=== PATIENT | female | born 1980 | race Caucasian/White ===

== ENCOUNTER → 2017-08-11 | Outpatient (CLI) | payer OTHER ==
[2017-08-11 12:55] LABS: ADD MAN DIFF? NO
[2017-08-11 13:05] LABS: BASO # 0.1 x10^3/uL (0.0-0.2); BASO % 1 % (0-3); EOS # 0.4 x10^3/uL (0.0-0.7); EOS % 4 % (0-3); HEMATOCRIT 40.9 % (36.0-47.0); HEMOGLOBIN 13.6 g/dL (12.0-15.5); LYMPH # 4.6 x10^3/uL (1.0-4.8); LYMPH % 36 % (24-48); MEAN CORPUSCULAR HEMOGLOBIN 29 pg (25-35); MEAN CORPUSCULAR HGB CONC 33 g/dL (31-37); MEAN CORPUSCULAR VOLUME 88 fL (79-100); MONO # 0.9 x10^3/uL (0.0-1.1); MONO % 7 % (0-9); NEUT # 6.7 x10^3uL (1.8-7.7); NEUT % 52 % (31-73); PLATELET COUNT 240 x10^3/uL (140-400); RED BLOOD COUNT 4.64 x10^6/uL (3.50-5.40); RED CELL DISTRIBUTION WIDTH 13.3 % (11.5-14.5); WHITE BLOOD COUNT 12.8 x10^3/uL (4.0-11.0)
[2017-08-11 13:17] LABS: ALBUMIN 3.6 g/dL (3.4-5.0); ALBUMIN/GLOBULIN RATIO 0.9 (1.0-1.7); ALK PHOS 80 U/L (46-116); ALT (SGPT) 71 U/L (14-59); ANION GAP 8 (6-14); AST (SGOT) 39 U/L (15-37); BLOOD UREA NITROGEN 8 mg/dL (7-20); BUN/CREATININE RATIO 11 (6-20); CALCIUM 8.6 mg/dL (8.5-10.1); CARBON DIOXIDE 29 mmol/L (21-32); CHLORIDE 104 mmol/L (98-107); CHOLESTEROL 177 mg/dL (0-200); CREATININE 0.7 mg/dL (0.6-1.0); GFR 93.6; GLUCOSE 106 mg/dL (70-99); HDLC 41 mg/dL (40-60); LDLC 83 mg/dL (0-100); NON-HDL CHOLESTEROL 136 mg/dL (0-129); POTASSIUM 4.2 mmol/L (3.5-5.1); SODIUM 141 mmol/L (136-145); TOTAL BILIRUBIN 0.1 mg/dL (0.2-1.0); TOTAL PROTEIN 7.5 g/dL (6.4-8.2); TRIGLYCERIDES 266 mg/dL (0-150); VLDLC 53 mg/dL (0-40)
[2017-08-11 13:27] LABS: THYROID STIM HORMONE (TSH) 7.051 uIU/mL (0.358-3.74)
[2017-08-11 13:29] LABS: CHOLESTEROL/HDL RATIO 4.3
== END | disposition home or self-care (01) ==
LOC: LAB 12:38
DX: Z00.00 Encounter for general adult medical examination without abnormal findings (principal); R79.89 Other specified abnormal findings of blood chemistry; Z68.33 Body mass index [BMI] 33.0-33.9, adult
CPT/HCPCS: 36415; 80053; 80061; 84443; 85025

== ENCOUNTER → 2017-08-30 | Outpatient (CLI) | payer OTHER ==
[2017-08-30 11:08] LABS: ADD MAN DIFF? NO
[2017-08-30 11:18] LABS: BASO # 0.1 x10^3/uL (0.0-0.2); BASO % 1 % (0-3); EOS # 0.3 x10^3/uL (0.0-0.7); EOS % 3 % (0-3); HEMATOCRIT 39.7 % (36.0-47.0); HEMOGLOBIN 13.3 g/dL (12.0-15.5); LYMPH # 4.2 x10^3/uL (1.0-4.8); LYMPH % 35 % (24-48); MEAN CORPUSCULAR HEMOGLOBIN 30 pg (25-35); MEAN CORPUSCULAR HGB CONC 34 g/dL (31-37); MEAN CORPUSCULAR VOLUME 89 fL (79-100); MONO # 0.8 x10^3/uL (0.0-1.1); MONO % 7 % (0-9); NEUT # 6.4 x10^3uL (1.8-7.7); NEUT % 54 % (31-73); PLATELET COUNT 260 x10^3/uL (140-400); RED BLOOD COUNT 4.47 x10^6/uL (3.50-5.40); RED CELL DISTRIBUTION WIDTH 13.3 % (11.5-14.5); WHITE BLOOD COUNT 11.8 x10^3/uL (4.0-11.0)
[2017-08-31 16:17] LABS: HCV ANTIBODY <0.1 s/co ratio (0.0-0.9); HEP A IGM ABDY Negative (Negative); HEP B SURFACE AG Negative (Negative)
== END | disposition home or self-care (01) ==
LOC: LAB 10:53
DX: D72.829 Elevated white blood cell count, unspecified (principal); R79.89 Other specified abnormal findings of blood chemistry
CPT/HCPCS: 36415; 80074; 85025

== ENCOUNTER 2019-04-17 11:54 | Emergency (ER) | payer OTHER ==
[~2019-04-17] VITALS: Ht 142.2 cm; Wt 67.1 kg
--- NOTE | 2019-04-17 13:23 | RAD ---
EXAM: CHEST ONE VIEW. HISTORY: Hypertension. COMPARISON: None. FINDINGS: A frontal view of the chest is obtained. There are no confluent infiltrates. There is no pneumothorax or pleural effusion. The heart is not enlarged. IMPRESSION: 1. No confluent infiltrates. Electronically signed by: Theresa Le MD (04/17/2019 1:20 PM) [facility]
--- NOTE | 2019-04-17 13:49 | EKG ---
[facility] [address] [place] [address] Test Date: 2019-04-17 Test Time: 13:30:11 Pat Name: GUILLERMO ARITA Department: Room: Gender: F [employer]: : 1980 Requested By: DEBI FLORES Order Number: [id number] Reading MD: Measurements Intervals [place] Rate: 91 P: 39 VT: 162 QRS: -16 QRSD: 68 T: 2 QT: 342 QTc: 422 Interpretive Statements SINUS RHYTHM LEFTWARD AXIS QRS(T) CONTOUR ABNORMALITY CONSISTENT WITH INFERIOR INFARCT AGE UNDETERMINED ABNORMAL ECG RI6.01 No previous ECG available for comparison
[2019-04-17] MEDS: MORPHINE SULFATE 4 MG/ML VIAL. IV/SQ PRN (13:52)
[2019-04-17 14:27] LABS: BASO # 0.1 x10^3/uL (0.0-0.2); BASO % 1 % (0-3); EOS # 0.3 x10^3/uL (0.0-0.7); EOS % 2 % (0-3); HEMATOCRIT 39.8 % (36.0-47.0); HEMOGLOBIN 13.2 g/dL (12.0-15.5); LYMPH # 4.8 x10^3/uL (1.0-4.8); LYMPH % 37 % (24-48); MEAN CORPUSCULAR HEMOGLOBIN 30 pg (25-35); MEAN CORPUSCULAR HGB CONC 33 g/dL (31-37); MEAN CORPUSCULAR VOLUME 90 fL (79-100); MONO % 7 % (0-9); NEUT # 6.9 x10^3/uL (1.8-7.7); NEUT % 53 % (31-73); PLATELET COUNT 253 x10^3/uL (140-400); RED BLOOD COUNT 4.44 x10^6/uL (3.50-5.40); RED CELL DISTRIBUTION WIDTH 13.8 % (11.5-14.5); WHITE BLOOD COUNT 13.1 x10^3/uL (4.0-11.0)
[2019-04-17 14:45] LABS: BARBITURATES NEG (NEG); BENZODIAZEPINES NEG (NEG); CANNABINOIDS NEG (NEG); COCAINE NEG (NEG); METHADONE NEG (NEG); OPIATES NEG (NEG); PHENCYCLIDINE NEG (NEG)
[2019-04-17 14:47] LABS: AMPHETAMINE/METHAMPHETAMINE NEG (NEG)
[2019-04-17 14:51] LABS: CALCIUM 8.7 mg/dL (8.5-10.1); CREATININE 0.7 mg/dL (0.6-1.0); GFR 93.2; POTASSIUM 3.9 mmol/L (3.5-5.1)
[2019-04-17 14:58] LABS: ALBUMIN 3.5 g/dL (3.4-5.0); ALBUMIN/GLOBULIN RATIO 0.9 (1.0-1.7); MAGNESIUM 1.6 mg/dL (1.8-2.4); TOTAL BILIRUBIN 0.3 mg/dL (0.2-1.0); TOTAL PROTEIN 7.4 g/dL (6.4-8.2)
[2019-04-17 16:22] LABS: BILIRUBIN,URINE NEGATIVE (NEG); CLARITY,URINE CLEAR; COLOR,URINE YELLOW; NITRITE,URINE NEGATIVE (NEG); PH,URINE 5.5; PROTEIN,URINE NEGATIVE (NEG-TRACE); UROBILINOGEN,URINE 0.2 mg/dL (0.2 mg/dL)
[2019-04-17 16:39] LABS: AMORPHOUS SEDIMENT,UR PRESENT /HPF; BACTERIA,URINE 0 /HPF (0-FEW); SQUAMOUS EPITHELIAL CELL,UR OCC /LPF; WBC,URINE OCC /HPF (0-4)
[2019-04-17 17:00] VITALS: BP 146/100
--- NOTE | 2019-04-17 17:36 | PHYS DOC ---
Past Medical History Past Medical History: No Pertinent History Past Surgical History: , Tonsillectomy, Tubal ligation Alcohol Use: None Drug Use: None Adult General Chief Complaint Chief Complaint: HYPERTENSION HPI HPI Patient is a 38 year old female with no significant medical history who presents to the ED today to be evaluated for high blood pressure. Patient works as a registered nurse cardiac in the hospital, she states she was on one of the floors upstairs when she felt dizzy and they took her blood pressure which was 172/121 and she was advised to come to the ED. Patient denies any chest pain, shortness of breat h, headache. Review of Systems Review of Systems Constitutional: Denies fever or chills [] Eyes: Denies change in visual acuity, redness, or eye pain [] HENT: Denies nasal congestion or sore throat [] Respiratory: Denies cough or shortness of breath [] Cardiovascular: Reports high blood pressure GI: Denies abdominal pain, nausea, vomiting, bloody stools or diarrhea [] : Denies dysuria or hematuria [] Musculoskeletal: Denies back pain or joint pain [] Integument: Denies rash or skin lesions [] Neurologic: Reports dizziness, denies headache focal weakness or sensory changes [] All other systems were reviewed and found to be within normal limits, except as documented in this note. Current Medications Current Medications Current Medications Medications (Trade) Dose Ordered Sig/[place] Start Time Stop Time Status Last Admin Dose Admin Morphine Sulfate (Morphine Sulfate) 4 mg PRN Q15MIN PRN 04/17/19 13:00 04/18/19 12:59 04/17/19 13:52 4 MG Allergies Allergies Allergies Coded Allergies Type Severity Reaction Last Updated Verified No Known Drug Allergies 04/17/19 No Physical Exam Physical Exam Constitutional: Well developed, well nourished, no acute distress, non-toxic appearance. [] HENT: Normocephalic, atraumatic, bilateral external ears normal, oropharynx moist, no oral exudates, nose normal. [] Eyes: PERRLA, EOMI, conjunctiva normal, no discharge. [] Neck: Normal range of motion, no tenderness, supple, no stridor. [] Cardiovascular:Heart rate regular rhythm, no murmur [] Lungs & Thorax: Bilateral breath sounds clear to auscultation [] Abdomen: Bowel sounds normal, soft, no tenderness, no masses, no pulsatile masses. [] Skin: Warm, dry, no erythema, no rash. [] Back: No tenderness, no CVA tenderness. [] Extremities: No tenderness, no cyanosis, no clubbing, ROM intact, no edema. [] Neurologic: Alert and oriented X 3, normal motor function, normal sensory function, no focal deficits noted. Cranial nerves II through XII intact Psychologic: Affect normal, judgement normal, mood normal. [] Current Patient Data Vital Signs Vital Signs Date Time Temp Pulse Resp B/P (MAP) Pulse Ox O2 Delivery O2 Flow Rate FiO2 04/17/19 14:24 78 96 04/17/19 12:43 98.4 16 141/81 (101) Room Air 98.4 Lab Values Laboratory Tests Test 04/17/19 14:00 04/17/19 14:10 Urine Color Yellow Urine Clarity Clear Urine pH 5.5 Urine Specific [place] 1.025 Urine Protein Negative mg/dL (NEG-TRACE) Urine Glucose (UA) Negative mg/dL (NEG) Urine Ketones (Stick) Negative mg/dL (NEG) Urine Blood Small (NEG) Urine Nitrite Negative (NEG) Urine Bilirubin Negative (NEG) Urine Urobilinogen Dipstick 0.2 mg/dL (0.2 mg/dL) Urine Leukocyte Esterase Negative (NEG) Urine RBC 1-2 /HPF (0-2) Urine WBC Occ /HPF (0-4) Urine Squamous Epithelial Cells Occ /LPF Urine Amorphous Sediment Present /HPF Urine Bacteria 0 /HPF (0-FEW) Urine Opiates Screen Neg (NEG) Urine Methadone Screen Neg (NEG) Urine Barbiturates Neg (NEG) Urine Phencyclidine Screen Neg (NEG) Urine Amphetamine/Methamphetamine Neg (NEG) Urine Benzodiazepines Screen Neg (NEG) Urine Cocaine Screen Neg (NEG) Urine Cannabinoids Screen Neg (NEG) Urine Ethyl Alcohol Neg (NEG) White Blood Count 13.1 x10^3/uL (4.0-11.0) H Red Blood Count 4.44 x10^6/uL (3.50-5.40) Hemoglobin 13.2 g/dL (12.0-15.5) Hematocrit 39.8 % (36.0-47.0) Mean Corpuscular Volume 90 fL (79-100) Mean Corpuscular Hemoglobin 30 pg (25-35) Mean Corpuscular Hemoglobin Concent 33 g/dL (31-37) Red Cell Distribution Width 13.8 % (11.5-14.5) Platelet Count 253 x10^3/uL (140-400) Neutrophils (%) (Auto) 53 % (31-73) Lymphocytes (%) (Auto) 37 % (24-48) Monocytes (%) (Auto) 7 % (0-9) Eosinophils (%) (Auto) 2 % (0-3) Basophils (%) (Auto) 1 % (0-3) Neutrophils # (Auto) 6.9 x10^3/uL (1.8-7.7) Lymphocytes # (Auto) 4.8 x10^3/uL (1.0-4.8) Monocytes # (Auto) 1.0 x10^3/uL (0.0-1.1) Eosinophils # (Auto) 0.3 x10^3/uL (0.0-0.7) Basophils # (Auto) 0.1 x10^3/uL (0.0-0.2) Sodium Level 141 mmol/L (136-145) Potassium Level 3.9 mmol/L (3.5-5.1) Chloride Level 103 mmol/L (98-107) Carbon Dioxide Level 28 mmol/L (21-32) Anion Gap 10 (6-14) Blood Urea Nitrogen 8 mg/dL (7-20) Creatinine 0.7 mg/dL (0.6-1.0) Estimated GFR (Cockcroft-Gault) 93.2 BUN/Creatinine Ratio 11 (6-20) Glucose Level 97 mg/dL (70-99) Calcium Level 8.7 mg/dL (8.5-10.1) Magnesium Level 1.6 mg/dL (1.8-2.4) L Total Bilirubin 0.3 mg/dL (0.2-1.0) Aspartate Amino Transferase (AST) 48 U/L (15-37) H Alanine Aminotransferase (ALT) 98 U/L (14-59) H Alkaline Phosphatase 91 U/L (46-116) Creatine Kinase 110 U/L (26-192) Creatine Kinase MB (Mass) 0.7 ng/mL (0.0-3.6) Creatine Kinase MB Relative Index 0.6 % (0-4) Troponin I Quantitative < 0.017 ng/mL (0.000-0.055) QQ-Cxd-F-Type Natriuretic Peptide 95 pg/mL (0-124) Total Protein 7.4 g/dL (6.4-8.2) Albumin 3.5 g/dL (3.4-5.0) Albumin/Globulin Ratio 0.9 (1.0-1.7) L Thyroid Stimulating Hormone (TSH) 7.187 uIU/mL (0.358-3.74) H Laboratory Tests 04/17/19 14:10 Laboratory Tests 04/17/19 14:10 EKG EKG [address] Roth sinus rhythm HR 91 no STEMI[] Radiology/Procedures Radiology/Procedures []PROCEDURE: PORTABLE CHEST 1V EXAM: CHEST ONE VIEW. HISTORY: Hypertension. COMPARISON: None. FINDINGS: A frontal view of the chest is obtained. There are no confluent infiltrates. There is no pneumothorax or pleural effusion. The heart is not enlarged. IMPRESSION: 1. No confluent infiltrates. Electronically signed by: Theresa Le MD (04/17/2019 1:20 PM) [facility] DICTATED and SIGNED BY: GRACE LE MD DATE: 04/17/19 1320 Course & Med Decision Making Course & Med Decision Making Pertinent Labs and Imaging studies reviewed. (See chart for details) This is a 38-year-old female patient presenting to the ED today complaining of high blood pressure. Patient is employed in the hospital, was upstairs cleaning, felt dizzy, blood pressure was taken which was 172/121, has no previous history of hypertension. Patient arrives in the ED no distress. Neurological exam is intact. Blood pressure in the ED 141/81 HR 87. Patient's cardiac workup is negative, kidney function is normal, patient was discharged to home. Instructed to follow-up with her own PCP in the course of this week or next week. Dragon Disclaimer Dragon Disclaimer This electronic medical record was generated, in whole or in part, using a voice recognition dictation system. Departure Departure Impression: Primary Impression: High blood pressure Additional Impression: Dizziness Disposition: HOME, SELF-CARE Condition: STABLE Referrals: RAJAN JEFFERY MD (PCP) Follow up in the course of this week Patient Instructions: Dizziness, [id number], Managing Your High Blood Pressure Additional Instructions: You were evaluated in the emergency room for high blood pressure and dizziness. Your pressure in the emergency room was 141/81. This can be followed up with a primary care doctor in the course of this week, come back to the ED at any point symptoms worsen. Problem Qualifiers Primary Impression: High blood pressure Hypertension type: unspecified Qualified Codes: I10 - Essential (primary) hypertension DEBI FLORES APRN Apr 17, 2019 17:36
== END 2019-04-17 17:56 | disposition home or self-care (01) ==
LOC: ER 11:54
DX: I10 Essential (primary) hypertension (principal); R42 Dizziness and giddiness
CPT/HCPCS: 36415; 71045; 80053; 80307; 81001; 82553; 83735; 83880; 84443; 84484; 85025; 93005; 96374; 99285; J2270

== ENCOUNTER → 2019-06-30 | Outpatient (CLI) | payer OTHER ==
[2019-06-30 08:32] LABS: BASO # 0.1 x10^3/uL (0.0-0.2); BASO % 1 % (0-3); EOS # 0.5 x10^3/uL (0.0-0.7); EOS % 6 % (0-3); HEMATOCRIT 40.6 % (36.0-47.0); HEMOGLOBIN 13.6 g/dL (12.0-15.5); LYMPH # 3.2 x10^3/uL (1.0-4.8); LYMPH % 36 % (24-48); MEAN CORPUSCULAR HEMOGLOBIN 30 pg (25-35); MEAN CORPUSCULAR HGB CONC 34 g/dL (31-37); MEAN CORPUSCULAR VOLUME 89 fL (79-100); MONO # 0.7 x10^3/uL (0.0-1.1); MONO % 8 % (0-9); NEUT # 4.4 x10^3/uL (1.8-7.7); NEUT % 49 % (31-73); PLATELET COUNT 269 x10^3/uL (140-400); RED BLOOD COUNT 4.56 x10^6/uL (3.50-5.40); RED CELL DISTRIBUTION WIDTH 13.1 % (11.5-14.5); WHITE BLOOD COUNT 8.9 x10^3/uL (4.0-11.0)
[2019-06-30 08:50] LABS: ALBUMIN 3.5 g/dL (3.4-5.0); CREATININE 0.7 mg/dL (0.6-1.0); GFR 93.2; POTASSIUM 3.9 mmol/L (3.5-5.1); TOTAL BILIRUBIN 0.4 mg/dL (0.2-1.0); TOTAL PROTEIN 6.9 g/dL (6.4-8.2)
[2019-06-30 08:52] LABS: CHOLESTEROL/HDL RATIO 4.6
[2019-06-30 09:05] LABS: FREE T4 1.09 ng/dL (0.76-1.46); THYROID STIM HORMONE (TSH) 4.192 uIU/mL (0.358-3.74)
== END | disposition home or self-care (01) ==
LOC: LAB 07:39
PROVIDERS: ATTEND Nurse Practitioner Gerontology
DX: Z13.220 Encounter for screening for lipoid disorders (principal); R53.83 Other fatigue; E03.9 Hypothyroidism, unspecified
CPT/HCPCS: 36415; 80053; 80061; 82306; 84439; 84443; 85025

== ENCOUNTER → 2019-09-22 | Outpatient (CLI) | payer OTHER ==
[2019-09-22 09:38] LABS: FREE T4 0.89 ng/dL (0.76-1.46); THYROID STIM HORMONE (TSH) 3.735 uIU/mL (0.358-3.74)
== END | disposition home or self-care (01) ==
LOC: LAB 08:24
PROVIDERS: ATTEND Nurse Practitioner Gerontology
DX: E03.9 Hypothyroidism, unspecified (principal)
CPT/HCPCS: 36415; 84439; 84443

== ENCOUNTER → 2020-01-29 | Outpatient (CLI) | payer OTHER | END | disposition home or self-care (01) | LOC: LAB 08:48 | PROVIDERS: ATTEND Internal Medicine Pulmonary Disease | DX: Z20.828 Contact with and (suspected) exposure to other viral communicable diseases (principal) | CPT/HCPCS: U0003-CS ==

== ENCOUNTER → 2020-03-18 | Outpatient (CLI) | payer OTHER ==
[2020-03-18 07:52] LABS: CALCIUM 9.3 mg/dL (8.5-10.1); CREATININE 0.8 mg/dL (0.6-1.0); GFR 79.4; POTASSIUM 4.2 mmol/L (3.5-5.1)
[2020-03-19 01:08] LABS: HEMOGLOBIN A1C 6.3 % (4.8-5.6)
== END ==
LOC: LAB 07:26
PROVIDERS: ATTEND Family Medicine
DX: R73.09 Other abnormal glucose (principal)
CPT/HCPCS: 36415; 80048; 83036

== ENCOUNTER → 2020-05-27 | Outpatient (CLI) | payer OTHER | LOC: LAB 12:26 | PROVIDERS: ATTEND Internal Medicine Pulmonary Disease | DX: Z20.828 Contact with and (suspected) exposure to other viral communicable diseases (principal) | CPT/HCPCS: U0003 ==

== ENCOUNTER → 2020-10-16 | Outpatient (CLI) | payer OTHER ==
[2020-10-16 08:25] LABS: FREE T4 0.99 ng/dL (0.76-1.46); THYROID STIM HORMONE (TSH) 3.343 uIU/mL (0.358-3.74)
== END ==
LOC: LAB 07:24
PROVIDERS: ATTEND Family Medicine
DX: E03.9 Hypothyroidism, unspecified (principal)
CPT/HCPCS: 36415; 84439; 84443

== ENCOUNTER 2020-11-12 13:16 | Observation (INO) | payer OTHER ==
[~2020-11-12] VITALS: Ht 149.9 cm; Wt 86.3 kg
--- NOTE | 2020-11-12 13:58 | ED.ADGEN ---
Past Medical History Past Medical History: No Pertinent History Past Surgical History: , Tonsillectomy, Tubal ligation Smoking Status: Never Smoker Alcohol Use: None Drug Use: None General Adult EDM: Chief Complaint: DIZZY/LIGHT HEADED HPI: HPI: Patient is a 40-year-old female who arrives ambulatory to the emergency department complaining of the onset of feeling lightheaded as well as e xperiencing left-sided chest pain at roughly noon today. Patient reports she is working with this occurred. Patient states she checked her blood pressure and found to be significantly elevated. The patient reports she had tightness in her chest and felt as if she might pass out during this time. Patient states the pain radiated from her chest into her left upper extremity as well. Patient does have a history of hypertension however she is not been taking her medications for quite some time. Upon arrival to the emergency department the patient's blood pressure continues to remain elevated. She denies any history of illness. She further states that she is not had any focal neurological change otherwise. She is awake, alert and nontoxic-appearing. Review of Systems: Review of Systems: Constitutional: Denies fever or chills. [] Eyes: Denies change in visual acuity. [] HENT: Denies nasal congestion or sore throat. [] Respiratory: Denies cough or shortness of breath. [] Cardiovascular: Reports chest pain. Denies edema. [] GI: Denies abdominal pain, nausea, vomiting, bloody stools or diarrhea. [] : Denies dysuria. [] Musculoskeletal: Reports left upper extremity pain. Denies back pain or joint pain. [] Integument: Denies rash. [] Neurologic: Reports feeling lightheaded/dizzy. Denies headache, focal weakness or sensory changes. [] Endocrine: Denies polyuria or polydipsia. [] Lymphatic: Denies swollen glands. [] Psychiatric: Denies depression or anxiety. [] Current Medications: Current Medications Medications (Trade) Dose Ordered Sig/[place] Start Time Stop Time Status Last Admin Dose Admin Aspirin (Aspirin Chewable) 324 mg 1X ONCE 11/12/20 14:00 11/12/20 14:07 DC 11/12/20 14:26 324 MG Hydralazine HCl (Apresoline Inj) 10 mg 1X ONCE 11/12/20 15:00 11/12/20 15:01 DC 11/12/20 15:09 10 MG Allergies: Allergies: Allergies Coded Allergies Type Severity Reaction Last Updated Verified No Known Drug Allergies 04/17/19 No Physical Exam: PE: Constitutional: Well developed, well nourished, no acute distress, non-toxic appearance. [] HENT: Normocephalic, atraumatic, bilateral external ears normal, oropharynx moist, no oral exudates, nose normal. [] Eyes: PERRLA, EOMI, conjunctiva normal, no discharge. [] Neck: Normal range of motion, no tenderness, supple, no stridor. [] Cardiovascular:Heart rate regular rhythm, no murmur [] Lungs & Thorax: Bilateral breath sounds clear to auscultation [] Abdomen: Bowel sounds normal, soft, no tenderness, no masses, no pulsatile masses. [] Skin: Warm, dry, no erythema, no rash. [] Back: No tenderness, no CVA tenderness. [] Extremities: No tenderness, no cyanosis, no clubbing, ROM intact, no edema. [] Neurologic: Alert and oriented X 3, normal motor function, normal sensory function, no focal deficits noted. [] Psychologic: Affect normal, judgement normal, mood normal. [] Current Patient Data: Labs: Laboratory Tests Test 11/12/20 14:10 White Blood Count 15.6 x10^3/uL (4.0-11.0) H Red Blood Count 5.18 x10^6/uL (3.50-5.40) Hemoglobin 15.8 g/dL (12.0-15.5) H Hematocrit 45.8 % (36.0-47.0) Mean Corpuscular Volume 88 fL (79-100) Mean Corpuscular Hemoglobin 31 pg (25-35) Mean Corpuscular Hemoglobin Concent 35 g/dL (31-37) Red Cell Distribution Width 13.6 % (11.5-14.5) Platelet Count 284 x10^3/uL (140-400) Neutrophils (%) (Auto) 67 % (31-73) Lymphocytes (%) (Auto) 24 % (24-48) Monocytes (%) (Auto) 8 % (0-9) Eosinophils (%) (Auto) 1 % (0-3) Basophils (%) (Auto) 1 % (0-3) Neutrophils # (Auto) 10.4 x10^3/uL (1.8-7.7) H Lymphocytes # (Auto) 3.7 x10^3/uL (1.0-4.8) Monocytes # (Auto) 1.2 x10^3/uL (0.0-1.1) H Eosinophils # (Auto) 0.1 x10^3/uL (0.0-0.7) Basophils # (Auto) 0.2 x10^3/uL (0.0-0.2) Sodium Level 144 mmol/L (136-145) Potassium Level 3.8 mmol/L (3.5-5.1) Chloride Level 102 mmol/L (98-107) Carbon Dioxide Level 29 mmol/L (21-32) Anion Gap 13 (6-14) Blood Urea Nitrogen 13 mg/dL (7-20) Creatinine 0.9 mg/dL (0.6-1.0) Estimated GFR (Cockcroft-Gault) 69.0 BUN/Creatinine Ratio 14 (6-20) Glucose Level 138 mg/dL (70-99) H Calcium Level 9.4 mg/dL (8.5-10.1) Total Bilirubin 0.2 mg/dL (0.2-1.0) Aspartate Amino Transferase (AST) 40 U/L (15-37) H Alanine Aminotransferase (ALT) 97 U/L (14-59) H Alkaline Phosphatase 87 U/L (46-116) Troponin I Quantitative < 0.017 ng/mL (0.000-0.055) XQ-Wme-B-Type Natriuretic Peptide 28 pg/mL (0-124) Total Protein 8.3 g/dL (6.4-8.2) H Albumin 4.7 g/dL (3.4-5.0) Albumin/Globulin Ratio 1.3 (1.0-1.7) Lipase 169 U/L (73-393) Laboratory Tests 11/12/20 14:10 Laboratory Tests 11/12/20 14:10 Vital Signs: Vital Signs Date Time Temp Pulse Resp B/P (MAP) Pulse Ox O2 Delivery O2 Flow Rate FiO2 11/12/20 15:09 87 197/119 11/12/20 13:40 98.6 20 97 Room Air 98.6 EKG: EKG: EKG was obtained at 1340 hrs. revealed a normal sinus rhythm with a ventricular rate of 80 bpm. There is right axis deviation. There are no acute ST/T wave changes to denote ischemia. [] Heart Score: C/O Chest Pain: Yes HEART Score for Chest Pain: HEART Score for Chest Pain Response (Comments) Value History Slighlty/Non-Suspicious 0 ECG Normal 0 Age < 45 0 Risk Factors 1 or 2 Risk Factors 1 Troponin < Normal Limit 0 Total 1 Risk Factors: Risk Factors: DM, Current or recent (<one month) smoker, HTN, HLP, family history of CAD, obesity. Risk Scores: Score 0 - 3: 2.5% MACE over next 6 weeks - Discharge Home Score 4 - 6: 20.3% MACE over next 6 weeks - Admit for Clinical Observation Score 7 - 10: 72.7% MACE over next 6 weeks - Early Invasive Strategies Radiology/Procedures: Radiology/Procedures: [] Impression: [facility] [address] [place], [place] [id number] IMAGING REPORT Signed PATIENT: GUILLERMO ARITA ACCOUNT: [id number] : 1980 LOCATION: ER AGE: 40 SEX: F EXAM STATUS: REG ER ORD. PHYSICIAN: JAXSON HAILE DO REASON: Chest Pain today PROCEDURE: PORTABLE CHEST 1V EXAM: CHEST 1 VIEW History: Chest pain COMPARISON: 04/17/2019. TECHNIQUE: Single portable radiograph of the chest FINDINGS: The cardiac silhouette is unremarkable. The lungs are clear bilaterally. The costophrenic sulci are clear and well demarcated. IMPRESSION: No radiographic evidence of an acute cardiopulmonary process. Electronically signed by: Eddie Graves MD (11/12/2020 2:05 PM) [id number] DICTATED and SIGNED BY: EDDIE GRAVES MD DATE: 11/12/20 [id number] 0 Course & Med Decision Making: Course & Med Decision Making Pertinent Labs and Imaging studies reviewed. (See chart for details) The patient remains awake, alert and in no acute distress. Patient's labs do not currently elicit the picture of a cardiac injury. Nonetheless the patient has continued high blood pressure here in the emergency department. 1 dose of IV hydralazine was provided to the patient and I have informed the patient I do believe she needs to remain in the hospital for further evaluation and treatment. The patient understands and has agreed to stay. She has been admitted to the hospital service for this purpose. She is nontoxic-appearing and stable for transport to the floor. [] Dragon Disclaimer: Dragon Disclaimer: This electronic medical record was generated, in whole or in part, using a voice recognition dictation system. Departure Departure Impression: Primary Impression: Chest pain Additional Impression: Uncontrolled hypertension Disposition: ADMITTED INPATIENT Admitting Physician: SHIMA Condition: STABLE Referrals: Gilbert CHA MD (PCP) Problem Qualifiers JAXSON HAILE DO Nov 12, 2020 13:58
[2020-11-12] MEDS ORDERED: ASPIRIN CHEWABLE 81 MG TABLET. PO ONE (14:00)
--- NOTE | 2020-11-12 14:07 | RAD ---
EXAM: CHEST 1 VIEW History: Chest pain COMPARISON: 04/17/2019. TECHNIQUE: Single portable radiograph of the chest FINDINGS: The cardiac silhouette is unremarkable. The lungs are clear bilaterally. The costophrenic sulci are clear and well demarcated. IMPRESSION: No radiographic evidence of an acute cardiopulmonary process. Electronically signed by: Eddie Graves MD (11/12/2020 2:05 PM) [id number]
[2020-11-12 14:25] LABS: BASO # 0.2 x10^3/uL (0.0-0.2); BASO % 1 % (0-3); EOS # 0.1 x10^3/uL (0.0-0.7); EOS % 1 % (0-3); HEMATOCRIT 45.8 % (36.0-47.0); HEMOGLOBIN 15.8 g/dL (12.0-15.5); LYMPH # 3.7 x10^3/uL (1.0-4.8); LYMPH % 24 % (24-48); MEAN CORPUSCULAR HEMOGLOBIN 31 pg (25-35); MEAN CORPUSCULAR HGB CONC 35 g/dL (31-37); MEAN CORPUSCULAR VOLUME 88 fL (79-100); MONO # 1.2 x10^3/uL (0.0-1.1); MONO % 8 % (0-9); NEUT # 10.4 x10^3/uL (1.8-7.7); NEUT % 67 % (31-73); PLATELET COUNT 284 x10^3/uL (140-400); RED BLOOD COUNT 5.18 x10^6/uL (3.50-5.40); RED CELL DISTRIBUTION WIDTH 13.6 % (11.5-14.5); WHITE BLOOD COUNT 15.6 x10^3/uL (4.0-11.0)
[2020-11-12 14:36] LABS: CALCIUM 9.4 mg/dL (8.5-10.1); CREATININE 0.9 mg/dL (0.6-1.0); POTASSIUM 3.8 mmol/L (3.5-5.1)
[2020-11-12 14:46] LABS: ALBUMIN 4.7 g/dL (3.4-5.0); ALBUMIN/GLOBULIN RATIO 1.3 (1.0-1.7); TOTAL BILIRUBIN 0.2 mg/dL (0.2-1.0); TOTAL PROTEIN 8.3 g/dL (6.4-8.2)
[2020-11-12] MEDS ORDERED: hydrALAZINE 20 MG/ML VIAL. IVP ONE (15:00)
--- NOTE | 2020-11-12 15:39 | PDOC1 ---
History and Physical Date of Admission Date of Admission DATE: 11/12/20 TIME: 15:38 Identification/Chief Complaint Chief Complaint CHEST PAIN AT REST, NECK PAIN WITH RIGHT RADICULAR Symptoms after lifting at work , FATHER HAD CAD AT AGE 53 History of Present Illness History of Present Illness 40-year-old female, works here who arrives ambulatory to the emergency department complaining of the onset of feeling lightheaded as well as experiencing left-sided chest pain at roughly noon today. she was working with this occurred. Patient states she checked her blood pressure and found to be significantly elevated. The patient reports she had tightness in her chest and felt as if she might pass out the pain radiated from her chest into her left upper extremity as well. Patient does have a history of hypertension however she is not been taking her medications for quite some time. Upon arrival to the emergency department the patient's blood pressure continues to remain elevated. She denies increased usual stress in her life, but sustained a right arm injury at work recently with right cervical radiculopathy, and is taking a medrol dose MEET she is worried becaused her father had a CABG AT AGE 53 PLAN cvc bed / cardiology consult trend troponin i // consider out patient stress testing dvt prophylaxis Past Medical History Past Medical History Past Medical History Past Medical History: No Pertinent History Past Surgical History: , Tonsillectomy, Tubal ligation Smoking Status: Never Smoker Alcohol Use: None Drug Use: None Cardiovascular: HTN GI: No pertinent hx Heme/Onc: No pertinent hx Psych: No pertinent hx ENT: No pertinent hx Renal/: No pertinent hx Family History Family History: Heart Disease, High Cholestrol, Hypertension Family History: Parent Social History Smoke: No ALCOHOL: none Drugs: None Current Problem List Problem List Problems Medical Problems: (1) Chest pain Status: Acute (2) Uncontrolled hypertension Status: Acute Current Medications Current Medications Current Medications Aspirin (Aspirin Chewable) 324 mg 1X ONCE PO Last administered on 11/12/20at 14:26; Start 11/12/20 at 14:00; Stop 11/12/20 at 14:07; Status DC Hydralazine HCl (Apresoline Inj) 10 mg 1X ONCE IVP Last administered on 11/12/20at 15:09; Start 11/12/20 at 15:00; Stop 11/12/20 at 15:01; Status DC Allergies Allergies: Coded Allergies: No Known Drug Allergies (Unverified , 04/17/19) ROS Review of System Constitutional: Denies fever or chills. [] Eyes: Denies change in visual acuity. [] HENT: Denies nasal congestion or sore throat. [] Respiratory: Denies cough or shortness of breath. [] Cardiovascular: Reports chest pain. Denies edema. [] GI: Denies abdominal pain, nausea, vomiting, bloody stools or diarrhea. [] : Denies dysuria. [] Musculoskeletal: Reports left upper extremity pain. Denies back pain or joint pain. [] Integument: Denies rash. [] Neurologic: Reports feeling lightheaded/dizzy. Denies headache, focal weakness or sensory changes. [] Endocrine: Denies polyuria or polydipsia. [] Lymphatic: Denies swollen glands. [] Psychiatric: Denies depression or anxiety. [] General: No: Chills, Night Sweats, Fatigue, Malaise, Appetite, Other PSYCHOLOGICAL ROS: YES: Anxiety; No: Behavioral Disorder, Concentration difficultie, Decreased libido, Depression, Disorientation, Hallucinations, Hostility, Irritablity, Memory difficulties, Mood Swings, Obsessive thoughts, Physical abuse, Sexual abuse, Sleep disturbances, Suicidal ideation, Other Eyes: No Blurry vision, No Decreased vision, No Double vision, No Dry eyes, No Excessive tearing, No Eye Pain, No Itchy Eyes, No Loss of vision, No Photophobia, No Scotomata, No Uses contacts, No Uses glasses, No Other HEENT: No: Heacaches, Visual Changes, Hearing change, Nasal congestion, Nasal discharge, Oral lesions, Sinus pain, Sore Throat, Epistaxis, Sneezing, Snoring, Tinnitus, Vertigo, Vocal changes, Other ALLERGY AND IMMUNOLOGY: No: Hives, Insect Bite Sensitivity, Itchy/Watery Eyes, Nasal Congestion, Post Nasal Drip, Seasonal Allergies, Other Hematological and Lymphatic: No: Bleeding Problems, Blood Clots, Blood Trans fusions, Brusing, Night Sweats, Pallor, Swollen Lymph Nodes, Other ENDOCRINE: No: Breast Changes, Galactorrhea, Hair Pattern Changes, Hot Flashes, Malaise/lethargy, Mood Swings, Palpitations, Polydipsia/polyuria, Skin Changes, Temperature Intolerance, Unexpected Weight Changes, Other Respiratory: No: Cough, Hemoptysis, Orthopnea, Pleuritic Pain, Shortness of breath, SOB with excertion, Sputum Changes, Stridor, Tachypnea, Wheezing, Other Cardiovascular: yes Chest Pain; No Palpitations, No Orthopnea, No Paroxysmal Noc. Dyspnea, No Edema, No Lt Headedness, No Other Gastrointestinal: No Nausea, No Vomiting, No Abdominal Pain, No Diarrhea, No Constipation, No Melena, No Hematochezia, No Other Genitourinary: No Dysuria, No Frequency, No Incontinence, No Hematuria, No Retention, No Discharge, No Urgency, No Pain, No Flank Pain, No Other, No , No , No , No , No , No , No Musculoskeletal: Yes Joint Stiffness, Yes Muscle Pain, Yes Pain In: (r arm ) Neurological: No Behavorial Changes, No Bowel/Bladder ControlChng, No Confusion, No Dizziness, No Gait Disturbance, No Headaches, No Impaired Coord/balance, No Memory Loss, No Numbness/Tingling, No Seizures, No Speech Problems, No Tremors, No Visual Changes, No Weakness, No Other Skin: No Dry Skin, No Eczema, No Hair Changes, No Lumps, No Mole Changes, No Mottling, No Nail Changes, No Pruritus, No Rash, No Skin Lesion Changes, No Other, No Acne Physical Exam Physical Exam Constitutional: Well developed, well nourished, no acute distress, non-toxic appearance. [] anxious HENT: Normocephalic, atraumatic, bilateral external ears normal, oropharynx moist, no oral exudates, nose normal. [] Eyes: PERRLA, EOMI, conjunctiva normal, no discharge. [] Neck: Normal range of motion, no tenderness, supple, no stridor. [] Cardiovascular:Heart rate regular rhythm, no murmur [] Lungs & Thorax: Bilateral breath sounds clear to auscultation [] Abdomen: Bowel sounds normal, soft, no tenderness, no masses, no pulsatile masses. [] Skin: Warm, dry, no erythema, no rash. [] Back: No tenderness, no CVA tenderness. [] Extremities: No tenderness, no cyanosis, no clubbing, ROM intact, no edema. [] Neurologic: Alert and oriented X 3, normal motor function, normal sensory function, no focal deficits noted. [] Psychologic: Affect normal, judgment normal, mood normal. [] General: Alert, Oriented X3, Cooperative HEENT: Atraumatic, PERRLA, EOMI, Mucous membr. moist/pink Lungs: Clear to auscultation, Normal air movement Heart: RRR, no thrills, no rubs, no gallops, no murmurs, no jug vein distention Cardiovascular: S1, S2 Breasts: Not examined Abdomen: Normal bowel sounds, Soft, No tenderness, No hepatosplenomegaly, No masses Rectal Exam: not examined PELVIC: Examination not indicated Extremities: No cyanosis Neuro: Normal speech, Strength at 5/5 X4 ext, Sensation intact, Cranial nerves 3-12 NL Psych/Mental Status: Mental status NL, Mood NL Vitals Vitals Vital Signs Date Time Temp Pulse Resp B/P (MAP) Pulse Ox O2 Delivery O2 Flow Rate FiO2 11/12/20 15:09 87 197/119 11/12/20 13:40 98.6 20 97 Room Air 98.6 Labs Labs Laboratory Tests Test 11/12/20 14:10 White Blood Count 15.6 x10^3/uL (4.0-11.0) Red Blood Count 5.18 x10^6/uL (3.50-5.40) Hemoglobin 15.8 g/dL (12.0-15.5) Hematocrit 45.8 % (36.0-47.0) Mean Corpuscular Volume 88 fL (79-100) Mean Corpuscular Hemoglobin 31 pg (25-35) Mean Corpuscular Hemoglobin Concent 35 g/dL (31-37) Red Cell Distribution Width 13.6 % (11.5-14.5) Platelet Count 284 x10^3/uL (140-400) Neutrophils (%) (Auto) 67 % (31-73) Lymphocytes (%) (Auto) 24 % (24-48) Monocytes (%) (Auto) 8 % (0-9) Eosinophils (%) (Auto) 1 % (0-3) Basophils (%) (Auto) 1 % (0-3) Neutrophils # (Auto) 10.4 x10^3/uL (1.8-7.7) Lymphocytes # (Auto) 3.7 x10^3/uL (1.0-4.8) Monocytes # (Auto) 1.2 x10^3/uL (0.0-1.1) Eosinophils # (Auto) 0.1 x10^3/uL (0.0-0.7) Basophils # (Auto) 0.2 x10^3/uL (0.0-0.2) Sodium Level 144 mmol/L (136-145) Potassium Level 3.8 mmol/L (3.5-5.1) Chloride Level 102 mmol/L (98-107) Carbon Dioxide Level 29 mmol/L (21-32) Anion Gap 13 (6-14) Blood Urea Nitrogen 13 mg/dL (7-20) Creatinine 0.9 mg/dL (0.6-1.0) Estimated GFR (Cockcroft-Gault) 69.0 BUN/Creatinine Ratio 14 (6-20) Glucose Level 138 mg/dL (70-99) Calcium Level 9.4 mg/dL (8.5-10.1) Total Bilirubin 0.2 mg/dL (0.2-1.0) Aspartate Amino Transf (AST/SGOT) 40 U/L (15-37) Alanine Aminotransferase (ALT/SGPT) 97 U/L (14-59) Alkaline Phosphatase 87 U/L (46-116) Troponin I Quantitative < 0.017 ng/mL (0.000-0.055) DW-Pkd-J-Type Natriuretic Peptide 28 pg/mL (0-124) Total Protein 8.3 g/dL (6.4-8.2) Albumin 4.7 g/dL (3.4-5.0) Albumin/Globulin Ratio 1.3 (1.0-1.7) Lipase 169 U/L (73-393) Laboratory Tests Test 11/12/20 14:10 White Blood Count 15.6 x10^3/uL (4.0-11.0) Red Blood Count 5.18 x10^6/uL (3.50-5.40) Hemoglobin 15.8 g/dL (12.0-15.5) Hematocrit 45.8 % (36.0-47.0) Mean Corpuscular Volume 88 fL (79-100) Mean Corpuscular Hemoglobin 31 pg (25-35) Mean Corpuscular Hemoglobin Concent 35 g/dL (31-37) Red Cell Distribution Width 13.6 % (11.5-14.5) Platelet Count 284 x10^3/uL (140-400) Neutrophils (%) (Auto) 67 % (31-73) Lymphocytes (%) (Auto) 24 % (24-48) Monocytes (%) (Auto) 8 % (0-9) Eosinophils (%) (Auto) 1 % (0-3) Basophils (%) (Auto) 1 % (0-3) Neutrophils # (Auto) 10.4 x10^3/uL (1.8-7.7) Lymphocytes # (Auto) 3.7 x10^3/uL (1.0-4.8) Monocytes # (Auto) 1.2 x10^3/uL (0.0-1.1) Eosinophils # (Auto) 0.1 x10^3/uL (0.0-0.7) Basophils # (Auto) 0.2 x10^3/uL (0.0-0.2) Sodium Level 144 mmol/L (136-145) Potassium Level 3.8 mmol/L (3.5-5.1) Chloride Level 102 mmol/L (98-107) Carbon Dioxide Level 29 mmol/L (21-32) Anion Gap 13 (6-14) Blood Urea Nitrogen 13 mg/dL (7-20) Creatinine 0.9 mg/dL (0.6-1.0) Estimated GFR (Cockcroft-Gault) 69.0 BUN/Creatinine Ratio 14 (6-20) Glucose Level 138 mg/dL (70-99) Calcium Level 9.4 mg/dL (8.5-10.1) Total Bilirubin 0.2 mg/dL (0.2-1.0) Aspartate Amino Transf (AST/SGOT) 40 U/L (15-37) Alanine Aminotransferase (ALT/SGPT) 97 U/L (14-59) Alkaline Phosphatase 87 U/L (46-116) Troponin I Quantitative < 0.017 ng/mL (0.000-0.055) FT-Egb-N-Type Natriuretic Peptide 28 pg/mL (0-124) Total Protein 8.3 g/dL (6.4-8.2) Albumin 4.7 g/dL (3.4-5.0) Albumin/Globulin Ratio 1.3 (1.0-1.7) Lipase 169 U/L (73-393) VTE Prophylaxis Ordered VTE Prophylaxis Devices: No VTE Pharmacological Prophylaxi: Yes Assessment/Plan Assessment/Plan Impression: Chest pain, First degree relative, ( father had premature CAD AT age 53, CABG morbid obesity cervical radiculopathy on right Uncontrolled hypertension Dizziness Anxiety disorder ADMITTED cvc bed cardiology consult trend troponin i consider out patient stress testing dvt prophylaxis D/W ER Justifications for Admission Other Justification VENESSA KAMINSKI MD Nov 12, 2020 15:38
[2020-11-12] MEDS ORDERED: ONDANSETRON PF 4 MG/2 ML VIAL. IV PRN ×2 (15:45→18:45)
--- NOTE | 2020-11-12 16:33 | EKG ---
[facility] [address] [place] [address] Test Date: 2020-11-12 Test Time: 13:40:45 Pat Name: GUILLERMO ARITA Department: Room: Gender: F Contact Lens Manufacturer: : [id number] Requested By: JAXSON HAILE Order Number: [id number] Reading MD: Measurements Intervals [place] Rate: 88 P: 143 MD: 162 QRS: 204 QRSD: 72 T: 165 QT: 338 QTc: 412 Interpretive Statements SUPRAVENTRICULAR RHYTHM LEFT ATRIAL ABNORMALITY ABNORMAL RIGHT SUPERIOR AXIS DEVIATION CONSIDER RIGHT VENTRICULAR HYPERTROPHY QRS(T) CONTOUR ABNORMALITY CONSIDER HIGH LATERAL INFARCT CONSIDER INFERIOR INFARCT ABNORMAL ECG RI6.02 No previous ECG available for comparison
[2020-11-12] MEDS ORDERED: hydrALAZINE 20 MG/ML VIAL. IVP PRN (17:15)
[2020-11-12] MEDS ORDERED: LEVO75TA67 PO (17:29)
[2020-11-12] MEDS ORDERED: TIZA2CAP PO (17:29)
[2020-11-12] MEDS ORDERED: METH4TAB6 PO (17:29)
[2020-11-12] MEDS ORDERED: METF500T16 PO (17:29)
[2020-11-12 17:35] VITALS: BP 195/112
[2020-11-12] MEDS ORDERED: tiZANidine 4 MG TABLET. PO PRN (18:00)
[2020-11-12] MEDS ORDERED: DEXTROSE 50% 25 GM / 50ML DISP.SYRIN. IV PRN (18:45)
[2020-11-12] MEDS: IV NORMAL SALINE 1000ML BAG 1,000 ML IV SCH (18:45)
[2020-11-12] MEDS ORDERED: cloNIDine HCL 0.1 MG TABLET PO PRN (18:45)
[2020-11-12] MEDS ORDERED: SODIUM PHOSPHATES 19/7GM 133 ML ENEMA. PR PRN (18:45)
[2020-11-12] MEDS ORDERED: ZOLPIDEM 5 MG TABLET. PO PRN (18:45)
[2020-11-12] MEDS ORDERED: ALBUTEROL SULFATE 2.5 MG/3 ML NEBU. NEB PRN (18:45)
[2020-11-12] MEDS ORDERED: LORazepam 0.5 MG TABLET PO PRN (18:45)
[2020-11-12] MEDS ORDERED: ACETAMINOPHEN 325 MG TABLET. PO PRN (18:45)
[2020-11-12] MEDS ORDERED: 0.9 % SODIUM CHLORIDE 10 ML DISP.SYRIN. IV PRN (18:45)
[2020-11-12] MEDS ORDERED: DOCUSATE SODIUM 100 MG CAPSULE. PO PRN (18:45)
[2020-11-12] MEDS ORDERED: MAG HYDROX/ALUMINUM HYD/SIMETH 30 ML ORAL.SUSP PO PRN (18:45)
[2020-11-12] MEDS ORDERED: guaiFENesin ORAL 200 MG/10 ML LIQUID. PO PRN (18:45)
[2020-11-12 19:56] VITALS: BP 156/98
[2020-11-12] MEDS: LISINOPRIL 5 MG TABLET. PO SCH (20:36)
[2020-11-12] MEDS: MEDROL PO SCH (20:37)
[2020-11-12] MEDS ORDERED: ENOXAPARIN 40 MG/0.4 ML SYRINGE. SQ SCH (21:00)
[2020-11-12] MEDS ORDERED: metFORMIN 500 MG TABLET PO SCH (21:00)
[2020-11-12 23:23] VITALS: BP 128/85
[2020-11-13 02:45] VITALS: BP 123/68
[2020-11-13] MEDS ORDERED: LEVOTHYROXINE 75 MCG TABLET PO SCH (06:00)
[2020-11-13] MEDS: IV NORMAL SALINE 1000ML BAG 1,000 ML IV SCH (06:31)
[2020-11-13 07:55] VITALS: BP 134/88
[2020-11-13] MEDS: INSULIN LISPRO 300 UNITS/3 ML VIAL. SQ SCH ×2 (08:00→12:19)
[2020-11-13 08:14] LABS: CHOLESTEROL/HDL RATIO 3.4
[2020-11-13] MEDS: MEDROL PO SCH (08:31)
[2020-11-13] MEDS: LISINOPRIL 5 MG TABLET. PO SCH (08:34)
--- NOTE | 2020-11-13 09:31 | PDOC2 ---
MILY JOHNS BUSINESS CONTINUITY MANAGEMENT DIRECTOR 11/13/20 0931: CARDIAC CONSULT DATE OF CONSULT Date of Consult DATE: 11/13/20 TIME: :21 REASON FOR CONSULT Reason for Consult: Chest pain REFERRING PHYSICIAN Referring Physician: Fullbright SOURCE Source: Chart review, Patient HISTORY OF PRESENT ILLNESS HISTORY OF PRESENT ILLNESS This is a pleasant 40 yo female admitted for complains of chest pain and not feeling good. Reports that she was at work yesterday and felt flushed in her faced and dizzy and felt funny. Also felt some left chest tightness. Also has funny feeling to her left hand. She went to ED and noted her BP was signi ficantly elevated. She held her NSAIDs lately and has been taking medrol dose pack due to cervical neuritis her ortho MD just diagnosed her with. She also has gaine significant weight and does not exercise. Reports that she used to take lisinopril but was discontinued by her PCP since her BP has been well controlled and last time she used this was 6 months ago. Positive for daytime somnolence and some RUSSELL in AM. Denies any SOA, nausea or vomiting. 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 No prior covid-19 and already completed her vaccine. No hx of CAD, VTE or any recent falls or injury. PAST MEDICAL HISTORY Cardiovascular: HTN Pulmonary: No pertinent hx CENTRAL NERVOUS SYSTEM: Other (No pertinent history) GI: No pertinent hx Heme/Onc: No pertinent hx Hepatobiliary: No pertinent hx Psych: No pertinent hx Musculoskeletal: Osteoarthritis, Other (cervical neuritis) Rheumatologic: No pertinent hx Infectious disease: No pertinent hx ENT: No pertinent hx Renal/: No pertinent hx Endocrine: Diabetes (pre), Hypothyroidism Dermatology: No pertinent hx PAST SURGICAL HISTORY Past Surgical History: (x3), Tubal Ligation, Tonsillectomy FAMILY HISTORY Family History: Coronary Artery Disease (father had CABG) SOCIAL HISTORY Smoke: No ALCOHOL: occassional Drugs: None Lives: with Family CURRENT MEDICATIONS CURRENT MEDICATIONS Current Medications Medications (Trade) Dose Ordered Sig/[place] Route PRN Reason Start Time Stop Time Status Last Admin Dose Admin Aspirin (Aspirin Chewable) 324 mg 1X ONCE PO 11/12/20 14:00 11/12/20 14:07 DC 11/12/20 14:26 Hydralazine HCl (Apresoline Inj) 10 mg 1X ONCE IVP 11/12/20 15:00 11/12/20 15:01 DC 11/12/20 15:09 Hydralazine HCl (Apresoline Inj) 10 mg PRN Q4HRS PRN IVP ELEVATED BP, SEE COMMENTS 11/12/20 17:15 11/12/20 17:23 Levothyroxine Sodium (Synthroid) 75 mcg DAILY06 PO 11/13/20 06:00 11/13/20 06:05 Metformin HCl (Glucophage) 500 mg HS PO 11/12/20 21:00 11/12/20 20:35 Non-Formulary Medication (Methylprednisolone ) 4 mg DAILYWBKFT PO 11/13/20 08:00 11/14/20 08:01 11/13/20 08:31 Enoxaparin Sodium (Lovenox 40mg Syringe) 40 mg Q24H SQ 11/12/20 21:00 11/12/20 20:35 Amlodipine Besylate (Norvasc) 5 mg DAILY PO 11/12/20 18:45 11/13/20 08:32 Lisinopril (Prinivil) 2.5 mg DAILY PO 11/12/20 18:45 11/13/20 08:34 ALLERGIES ALLERGIES: Coded Allergies: No Known Drug Allergies (Unverified , 04/17/19) ROS Review of System 14 point ROS evaluated with pertinent positives noted per HPI PHYSICAL EXAM General: Alert, Oriented X3, Cooperative, No acute distress HEENT: Atraumatic, Mucous membr. moist/pink Lungs: Clear to auscultation, Normal air movement Heart: Regular rate (SR), Normal S1, Normal S2, No murmurs Abdomen: Soft, No tenderness Extremities: No cyanosis, No edema Skin: No breakdown, No significant lesion Neuro: Normal speech, Sensation intact Psych/Mental Status: Mental status NL, Mood NL MUSCULOSKELETAL: Osteoarthritic changes both hands VITALS/I&O VITALS/I&O: Vital Signs Date Time Temp Pulse Resp B/P (MAP) Pulse Ox O2 Delivery O2 Flow Rate FiO2 11/13/20 08:34 91 123/68 11/13/20 07:55 97.9 20 99 Room Air 97.9 I & O 11/12/20 11/12/20 11/13/20 15:00 23:00 07:00 Intake Total 100 ml Balance 100 ml LABS Lab: Laboratory Tests Test 11/12/20 14:10 11/12/20 16:45 11/12/20 22:28 11/13/20 07:00 White Blood Count 15.6 x10^3/uL (4.0-11.0) H Red Blood Count 5.18 x10^6/uL (3.50-5.40) Hemoglobin 15.8 g/dL (12.0-15.5) H Hematocrit 45.8 % (36.0-47.0) Mean Corpuscular Volume 88 fL (79-100) Mean Corpuscular Hemoglobin 31 pg (25-35) Mean Corpuscular Hemoglobin Concent 35 g/dL (31-37) Red Cell Distribution Width 13.6 % (11.5-14.5) Platelet Count 284 x10^3/uL (140-400) Neutrophils (%) (Auto) 67 % (31-73) Lymphocytes (%) (Auto) 24 % (24-48) Monocytes (%) (Auto) 8 % (0-9) Eosinophils (%) (Auto) 1 % (0-3) Basophils (%) (Auto) 1 % (0-3) Neutrophils # (Auto) 10.4 x10^3/uL (1.8-7.7) H Lymphocytes # (Auto) 3.7 x10^3/uL (1.0-4.8) Monocytes # (Auto) 1.2 x10^3/uL (0.0-1.1) H Eosinophils # (Auto) 0.1 x10^3/uL (0.0-0.7) Basophils # (Auto) 0.2 x10^3/uL (0.0-0.2) Sodium Level 144 mmol/L (136-145) Potassium Level 3.8 mmol/L (3.5-5.1) Chloride Level 102 mmol/L (98-107) Carbon Dioxide Level 29 mmol/L (21-32) Anion Gap 13 (6-14) Blood Urea Nitrogen 13 mg/dL (7-20) Creatinine 0.9 mg/dL (0.6-1.0) Estimated GFR (Cockcroft-Gault) 69.0 BUN/Creatinine Ratio 14 (6-20) Glucose Level 138 mg/dL (70-99) H Calcium Level 9.4 mg/dL (8.5-10.1) Total Bilirubin 0.2 mg/dL (0.2-1.0) Aspartate Amino Transferase (AST) 40 U/L (15-37) H Alanine Aminotransferase (ALT) 97 U/L (14-59) H Alkaline Phosphatase 87 U/L (46-116) Troponin I Quantitative < 0.017 ng/mL (0.000-0.055) < 0.017 ng/mL (0.000-0.055) < 0.017 ng/mL (0.000-0.055) QR-Nps-G-Type Natriuretic Peptide 28 pg/mL (0-124) Total Protein 8.3 g/dL (6.4-8.2) H Albumin 4.7 g/dL (3.4-5.0) Albumin/Globulin Ratio 1.3 (1.0-1.7) Lipase 169 U/L (73-393) Triglycerides Level 149 mg/dL (0-150) Cholesterol Level 172 mg/dL (0-200) LDL Cholesterol, Calculated 91 mg/dL (0-100) VLDL Cholesterol, Calculated 30 mg/dL (0-40) Non-HDL Cholesterol Calculated 121 mg/dL (0-129) HDL Cholesterol 51 mg/dL (40-60) Cholesterol/HDL Ratio 3.4 Test 11/13/20 08:22 Glucose (Fingerstick) 107 mg/dL (70-99) H Laboratory Tests 11/12/20 14:10 Laboratory Tests 11/12/20 14:10 ASSESSMENT/PLAN ASSESSMENT/PLAN 1. Chest pain: likely from uncontrolled HTN 2. HTN urgency: better overnight after treatment 3. Suspect DALE 4. Obesity 5. Hypothyroidism: on replacement 6. Metabolic syndrome 7. Cervical neuritis 8. Steroid induced leukocytosis 9. HTN encephalopathy Recommendations 1. TTE and TSH 2. If symptoms continues to recur then will consider to follow up and consider outpt stress test otherwise her CP is now absent now that her BP is under control. Continue HBPM. DASH diet. Home BP med would be lisinopril 10/HCTZ 12.5 3. Wt loss and diet modification 4. Recommend outpt DALE workup. LUIS E LEVI MD 11/13/207: MILY JOHNS BUSINESS CONTINUITY MANAGEMENT DIRECTOR Nov 13, 2020 09:31 LUIS E LEVI MD Nov 13, 2020 18:47
[2020-11-13] MEDS ORDERED: hydroCHLOROthiazide 12.5 MG CAPSULE PO SCH (10:00)
--- NOTE | 2020-11-13 10:38 | NUR ---
SS following for discharge planning. SS reviewed pt chart and discussed with pt RN. Pt is from home with spouse and is currently on room air. Discharge plan is to home when medically ready. SS will continue to follow for discharge planning.
[2020-11-13 11:12] VITALS: BP 144/87
[2020-11-13] MEDS ORDERED: HYDR12.575 PO (11:55)
[2020-11-13] MEDS ORDERED: LISI10TA16 PO (11:55)
--- NOTE | 2020-11-13 11:56 | DISCH ---
DISCHARGE INSTRUCTIONS Condition on Discharge Condition on Discharge: Stable Activity After Discharge Activity Instructions for Disc: Activity as tolerated Lifting Instructions after Dis: Do not lift >10 pounds Exercise Instruction after Dis: Walk 15 min, 3 x per day Driving Instructions after Dis: Do not drive today Diet after Discharge Diet after Discharge: Diabetic No Calorie Level Diet Texture: Regular Liquid Texture: Thin Liquid Wound Incision Care Wound/Incision Care: No wound care needed Checks after Discharge Checks after discharge: Check blood press - daily, Check your Temp as needed Follow-Up Follow up with: Cardiology as needed Follow Up With: Primary care provider within 2 week Treatment/Equipment after DC Adaptive Equipment Issued: None MELY COUGHLIN MD Nov 13, 2020 11:56
[2020-11-13 14:12] VITALS: BP 138/79
--- NOTE | 2020-11-13 15:01 | CARD ---
MR#: [id number] Date of Study: 11/13/2020 Ordering Physician: MILY JOHNS, Referring Physician: MILY JOHNS Tech: Jennifer Mendez [facility] APPROVED REPORT EXAM: Two-dimensional and M-mode echocardiogram with Doppler and color Doppler. Other Information Quality : AverageHR: 94bpm Rhythm : NSR INDICATION Chest Pain RISK FACTORS Hypertension 2D DIMENSIONS RVDd2.9 (2.9-3.5cm)Left Atrium(2D)3.1 (1.6-4.0cm) IVSd1.1 (0.7-1.1cm)LVDd3.4 (3.9-5.9cm) LVOT Diameter2.1 (1.8-2.4cm)PWd1.0 (0.7-1.1cm) LVDs2.3 (2.5-4.0cm)FS (%) 33.3 % SV30.0 ml Aortic Valve AoV Peak Doc.133.8cm/sAoV VTI25.3cm AO Peak GR.7.2mmHgLVOT Peak Doc.109.0cm/s AO Mean GR.3mmHgAVA (VMAX)2.75cm2 Mitral Valve MV E Gzjfuvie675.7cm/sMV DECEL [id number] MV A Wliodxlg98.6cm/sE/A Ratio1.1 Pulmonary Valve PV Peak Aqjhdyaq501.4cm/s LEFT VENTRICLE The left ventricle is normal size. There is normal left ventricular wall thickness. The left ventricu lar systolic function is normal and the ejection fraction is within normal range. LV ejection fracti on is 55 to 60%. There is normal LV segmental wall motion. The left ventricular diastolic function an d filling is normal for age. RIGHT VENTRICLE The right ventricle is normal size. There is normal right ventricular wall thickness. The right ventr icular systolic function is normal. ATRIA The left atrium size is normal. The right atrium size is normal. The interatrial septum is intact wit h no evidence for an atrial septal defect or patent foramen ovale as noted on 2-D or Doppler imaging. AORTIC VALVE The aortic valve is normal in structure and function. Doppler and Color Flow revealed no significant aortic regurgitation. There is no significant aortic valvular stenosis. MITRAL VALVE The mitral valve is normal in structure and function. There is no evidence of mitral valve prolapse. There is no mitral valve stenosis. Doppler and Color Flow revealed no mitral valve regurgitation note d. TRICUSPID VALVE The tricuspid valve is normal in structure and function. Doppler and Color Flow revealed no tricuspid valve regurgitation noted. There is no tricuspid valve stenosis. PULMONIC VALVE The pulmonary valve is normal in structure and function. Doppler and Color Flow revealed no pulmonic valvular regurgitation. GREAT VESSELS The aortic root is normal in size. The ascending aorta is normal in size. The IVC is normal in size a nd collapses >50% with inspiration. PERICARDIAL EFFUSION There is no evidence of significant pericardial effusion. Critical Notification Critical Value: No <Conclusion> The left ventricle is normal size. The left ventricular systolic function is normal and the ejection fraction is within normal range. LV ejection fraction is 55 to 60%. There is normal LV segmental wall motion. Doppler and Color Flow revealed no significant aortic regurgitation. There is no significant aortic valvular stenosis. Doppler and Color Flow revealed no mitral valve regurgitation noted. Doppler and Color Flow revealed no tricuspid valve regurgitation noted. Signed by : Yong Purcell MD Electronically Approved : 11/13/2020 15:01:18
--- NOTE | 2020-11-13 15:25 | NUR ---
Discharge Note: GUILLERMO ARITA LENOX Discharge instructions and discharge home medications reviewed with Patient and a copy given. All questions have been answered and understanding verbalized. The following instructions and handouts were given: hypertension, hydrochlorothiazide, lisinopril. Patient discharged to home with self care via ambulatory.
[2020-11-13] MEDS ORDERED: MEDROL PO SCH (21:00)
[2020-11-14] MEDS ORDERED: LISINOPRIL 10 MG TABLET PO SCH (09:00)
--- NOTE | 2020-11-15 17:05 | PDOC3 ---
[facility]-Discharge Summary Date of Admission: Date of Admission: Nov 12, 2020 Date of Discharge: Date of Discharge: Nov 13, 2020 Discharge Diagnosis: Discharge Diagnosis: 1. Chest pain: likely from uncontrolled HTN 2. HTN urgency: better overnight after treatment 3. Suspect DALE 4. morbid Obesity 5. Hypothyroidism: on replacement 6. Metabolic syndrome 7. Cervical neuritis 8. Steroid induced leukocytosis 9. HTN encephalopathy Consults: Consults: Cardiology Recommendations 1. TTE and TSH 2. If symptoms continues to recur then will consider to follow up and consider outpt stress test otherwise her CP is now absent now that her BP is under control. Continue HBPM. DASH diet. Home BP med would be lisinopril 10/HCTZ 12.5 3. Wt loss and diet modification 4. Recommend outpt DALE workup. Hospital Course: Hospital Course: 40-year-old female, works here who arrives ambulatory to the emergency department complaining of the onset of feeling lightheaded as well as experien cing left-sided chest pain at roughly noon today. she was working with this occurred. Patient states she checked her blood pressure and found to be significantly elevated. The patient reports she had tightness in her chest and felt as if she might pass out the pain radiated from her chest into her left upper extremity as well. Patient does have a history of hypertension however she is not been taking her medications for quite some time. Upon arrival to the emergency department the patient's blood pressure continues to remain elevated. She denies increased usual stress in her life, but sustained a right arm injury at work recently with right cervical radiculopathy, and is taking a medrol dose MEET she is worried becaused her father had a CABG AT AGE 53 PLAN cvc bed / cardiology consult trend troponin i // consider out patient stress testing dvt prophylaxis By day of discharge, pt was clinically stable and ready for discharge. Rest of hospital course was uneventful Disposition: Disposition/Orders: D/C to Home Activity: Activity: Resume previous activity Diet: Diet: Cardiac Medications: Home Meds Active Scripts Hydrochlorothiazide (HYDROCHLOROTHIAZIDE CAPSULE ) 12.5 Mg Capsule, 12.5 MG PO DAILY for blood pressure for 30 Days, #30 CAP Prov:MELY COUGHLIN MD 11/13/20 Lisinopril (LISINOPRIL) 10 Mg Tablet, 10 MG PO DAILY for blood pressure for 30 Days, #30 TAB Prov:MELY COUGHLIN MD 11/13/20 Reported Medications Tizanidine Hcl (TIZANIDINE HCL) 2 Mg Capsule, 2 MG PO TID PRN for MUSCLE SPASMS, CAP 11/12/20 Metformin Hcl (METFORMIN HCL) 500 Mg Tablet, 500 MG PO HS for ANTI-DIABETIC, TAB 0 Refills 11/12/20 Levothyroxine Sodium (Levo-T) 75 Mcg Tablet, 75 MCG PO DAILY06 for hypothyroid, TAB 11/12/20 Discontinued Reported Medications Methylprednisolone (METHYLPREDNISOLONE) 4 Mg Tab.ds.pk, 4 MG PO DAILY for muscle strain, TAB 11/12/20 Scheduled Hydrochlorothiazide (Hydrochlorothiazide Capsule ), 12.5 MG PO DAILY Levothyroxine Sodium (Levo-T), 75 MCG PO DAILY06, (Reported) Lisinopril (Lisinopril), 10 MG PO DAILY Metformin Hcl (Metformin Hcl), 500 MG PO HS, (Reported) Scheduled PRN Tizanidine Hcl (Tizanidine Hcl), 2 MG PO TID PRN for MUSCLE SPASMS, (Reported) Discontinued Medications Methylprednisolone (Methylprednisolone), 4 MG PO DAILY, (Reported) Total Time: Total Time: Total time spent was 35 minutes in preparing scripts, discharge planning with SW and RN, and preparing this discharge summary. Patient seen and examined on day of discharge. Justicifation of Admission Dx: Justifications for Admission: Justification of Admission Dx: Yes Angina: New-Onset MELY COUGHLIN MD Nov 15, 2020 17:05
== END 2020-11-13 15:25 | disposition home or self-care (01) ==
LOC: ER 13:16 → 2 NORTH 14:50
PROVIDERS: ADMIT Family Medicine; ATTEND Family Medicine
DX: R07.89 Other chest pain (principal); I16.0 Hypertensive urgency; G93.40 Encephalopathy, unspecified; F41.9 Anxiety disorder, unspecified; R42 Dizziness and giddiness; M19.90 Unspecified osteoarthritis, unspecified site; E11.9 Type 2 diabetes mellitus without complications; E03.9 Hypothyroidism, unspecified; M54.2 Cervicalgia; E66.9 Obesity, unspecified; E88.81 Metabolic syndrome and other insulin resistance; D72.829 Elevated white blood cell count, unspecified; T38.0X5A Adverse effect of glucocorticoids and synthetic analogues, initial encounter; M54.12 Radiculopathy, cervical region; Z98.51 Tubal ligation status; Z90.49 Acquired absence of other specified parts of digestive tract; Z98.891 History of uterine scar from previous surgery; Z79.82 Long term (current) use of aspirin; Z79.84 Long term (current) use of oral hypoglycemic drugs; Z68.38 Body mass index [BMI] 38.0-38.9, adult; Z79.899 Other long term (current) drug therapy
CPT/HCPCS: 36415; 71045; 80053; 80061; 82962; 83690; 83880; 84443; 84484; 85025; 93005; 93306; 96372; 96374; 96376; 99285; G0378; J0360; J1650; J1815; G0379

== ENCOUNTER → 2020-12-03 | Outpatient (CLI) | payer OTHER ==
[2020-11-13 14:12] VITALS: BP 138/79
[~2020-12-03] MED LIST: ACET500T68 PO; HYDR12.575 PO; IBUP-1027 PO; LEVO75TA67 PO; LISI10TA16 PO; METF500T16 PO; METH4TAB6 PO; OMEP20CA16 PO; TIZA2CAP PO
--- NOTE | 2020-12-03 14:43 | RAD ---
MRI of the cervical spine without contrast CLINICAL HISTORY: Neck pain which radiates down both arms, right greater than left. TECHNIQUE: Unenhanced T1-weighted, T2-weighted and inversion recovery sagittal and gradient echo and T2-weighted axial images of the cervical spine were obtained. FINDINGS: There is straightening of the normal cervical lordosis. Degenerative signal changes are see n involving all of the disks of the cervical spine. Degenerative signal changes are seen within the m arrow surrounding these discs. No area of abnormal signal intensity is seen involving the cervical sp inal cord. Mild to moderate mucosal thickening is seen throughout the visualized paranasal sinuses. There is prominence of the posterior subcutaneous fat throughout the superior/mid cervical spine. No discrete mass is seen. At the C2-3, C3-4 and C4-5 disc spaces there are minimal to mild generalized disc bulges. Degenerativ e changes are seen involving the uncovertebral and facet joints bilaterally. These findings do not re sult in significant central spinal canal or neural foraminal stenosis. At the C5-6 disc space there is a mild generalized disc bulge. Degenerative changes are seen involvin g the uncovertebral and facet joints bilaterally. These findings efface the anterior CSF resulting in mild central spinal canal stenosis without evidence of cord impingement. No neural foraminal stenosi s is seen. At the C6-7 disc space there is a mild to moderate generalized disc bulge. Degenerative changes are s een involving the uncovertebral and facet joints bilaterally. These findings results in mild central spinal canal stenosis without evidence of cord impingement. No neural foraminal stenosis is seen. At the C7-T1 disc space there is a minimal generalized disc bulge. Degenerative changes are seen invo lving the facet joints bilaterally. These findings do not result in significant central spinal canal or neural foraminal stenosis. IMPRESSION: Degenerative changes are seen throughout the cervical spine. These findings result in mil d central spinal canal stenosis at C5-6 and C6-7 without evidence of cord impingement. No neural fora gennaro stenosis is seen. Electronically signed by: Malcolm King MD (12/03/2020 2:41 PM) [id number]
== END ==
LOC: MRI 10:52
PROVIDERS: ATTEND Physician Assistant
DX: M47.23 Other spondylosis with radiculopathy, cervicothoracic region (principal); M50.13 Cervical disc disorder with radiculopathy, cervicothoracic region; M48.02 Spinal stenosis, cervical region
CPT/HCPCS: 72141

== ENCOUNTER → 2020-12-30 | Outpatient (CLI) | payer OTHER ==
[~2020-12-30] MED LIST changes: +IOHEXOL 180 MG/ML 10 ML VIAL. ONE; -OMEP20CA16 PO; +methylPREDNISolone ACETATE 40 MG/ML VIAL. ONE; +methylPREDNISolone ACETATE 80 MG/ML VIAL. ONE
--- NOTE | 2020-12-30 13:00 | PDOC1 ---
INITIAL PAIN CONSULT DATE OF SERVICE: DOS: DATE: 12/30/20 TIME: 12:53 CHIEF COMPLAINT: Chief Complaint: Neck and right upper extremity pain HISTORY OF PRESENT ILLNESS: 40-year-old female presents with history of pain after injury at work proximately 4 months ago when she was pulling a linen cart which was quite heavy had significant pain in her right arm and shoulder base the neck at that time is gotten worse since then with pain radiating the posterior deltoid into the trapezius also into the arm mostly in the biceps and into the forearms of numbness and tingling in the hand and finger especially the thumb and first and second fingers with burning in the bicep as well patient reports it is worse with activity weightbearing reaching repetitive motions with the right arm driving and difficulty with sleeping. Patient describes as throbbing tingling burning cramping and aching worse at night and worse while she was using her arm. Patient reports it wakes her from sleep least twice a night, does not affect her bowel bladder control or ability to walk she been taking ibuprofen which does not help significantly also had physical therapy done with some traction on her neck which helps temporarily but no long-term decrease in pain patient rates her disability rating 0-10 10 being worst is a 1 with social activity 5 with light support activities 0 self-care sexual behavior, recreation and family home responsibilities. Patient had MRI scan of the cervical spine which we discussed with her today showing generative changes throughout with mild central canal stenosis at C5-6 and C6-7 without evidence of cord impingement. PAST MEDICAL HISTORY: PMH: Type 2 diabetes, hypertension, gastroesophageal reflux, anxiety and depression PREVIOUS SURGERIES: Past Surgical Hx: Tonsillectomy, x3, tubal ligation CURRENT MEDICATIONS: Current Meds: Active Scripts Medications Dose Route/Sig Max Daily Dose Days Date Category Hydrochlorothiazide Capsule (Hydrochlorothiazide) 12.5 Mg Capsule 12.5 Mg PO DAILY 30 11/13/20 Rx Lisinopril 10 Mg Tablet 10 Mg PO DAILY 30 11/13/20 Rx Tizanidine Hcl 2 Mg Capsule 2 Mg PO TID PRN 11/12/20 Reported Metformin Hcl 500 Mg Tablet 500 Mg PO HS 11/12/20 Reported Levo-T (Levothyroxine Sodium) 75 Mcg Tablet 75 Mcg PO DAILY06 11/12/20 Reported ALLERGIES; Allergies: Coded Allergies: No Known Drug Allergies (Unverified , 04/17/19) FAMILY HISTORY: Family Hx: Diabetes, heart disease, hypertension SOCIAL HISTORY: Social Hx: Patient drinks alcohol very rarely does not smoke not use any illegal illicit recreational drugs is single lives at home with 2 children and works for environmental services at [employer] REVIEW OF SYSTEMS: ROS: Positive for those items mentioned in history of present illness, all systems are reviewed, otherwise negative ,and are complete full and well-documented on patient's chart. PHYSICAL EXAM: VS: Blood pressure is 120/84 pulse 84 respirations 16 temperature is 98.3 F height is 4 foot 11 inches weight is 187 pounds PE: PHYSICAL EXAMINATION: GENERAL: The patient is awake, alert, oriented, appropriate, very pleasant in demeanor HEENT: Shows normocephalic, atraumatic. Extraocular movements are intact and symmetrical. Oral cavity: Mucous membranes moist and pink. Dentition is intact. NECK: Shows anterior throat supple without palpable lymphadenopathy noted. Swallow reflex symmetrical. CHEST: Shows normal on inspection. Breath sounds are clear bilaterally no rales rhonchi or wheezes are auscultated. HEART: Shows S1, S2 clear. No murmurs auscultated. ABDOMEN: Soft, nontender, nondistended, obese. No palpable organomegaly is noted. BACK: Shows spine grossly in the midline. Normal-appearing cervical lordotic curvature. Cervical paraspinous muscles show symmetrical inspection, on palpation some moderate tenderness diffusely bilaterally in the upper middle lower distribution the paraspinous musculature also the superior medial trapezius slightly more on the right than the left but without specific trigger point atrophy hypertrophy. Neck shows full rotation of motion cervical spine both laterally as well as full extension full forward flexion without significant difficulty reported. There is slightly increased thoracic kyphosis, some minor flattening of the lumbar lordotic curvature. EXTREMITIES: Upper extremities show deep tendon reflexes 2+ in the biceps and triceps tendons. Motor exam is 4 on a scale of 5 with right hairspring studder, biceps and triceps flexion and 5/5 on the left. Peripheral pulses are 2+ radial. No pe ripheral edema is noted bilaterally. Upper extremities are warm and dry to touch, equal in color and appearance. Shoulder shrug strong and intact without loss of strength on resistance as is abduction of the shoulder 90 degrees bilaterally. SKIN: Shows warm and dry, good turgor. No edema. No sores, rashes or bruising throughout. IMPRESSION: Impression: 40-year-old female with approximate 4-month history after injury while at work right shoulder and upper extremity pain and radicular fashion resultant. MRI scan cervical spine as noted Hypertension Type 2 diabetes Anxiety depression Plan: Options were discussed with patient including conservative medical management physical therapies interventional techniques. Patient like to pursue interventional techniques. We discussed a cervical epidural steroid injection using description as well as anatomical models to describe the procedure. Risks were discussed including but not limited to: Bleeding, infection, possibility of epidural hematoma and subsequent neurological compromise, dural puncture, headaches, spinal cord and/or nerve damage, side effects of steroid medication, and poor results regarding pain control. Patient understands and wished to proceed. Patient will return to clinic in approximate 2 weeks for follow-up, was counseled as to return appointment activity level and side effects to be aw are. Procedure cervical epidural steroid injection at the C6-7 level, using local anesthetic under sterile prep and drape using C-arm fluoroscopic guidance under local anesthesia medications injected ;120 mg Depo-Medrol +5 mL normal saline and 2 mL contrast; condition at discharge is stable patient tolerated procedure well. and had no complications BRINDA PRIDE MD Dec 30, 2020 13:00
--- NOTE | 2020-12-30 13:00 | PDOC4 ---
Procedure Note: ICD 10 Code: ICD 10 Code: M 54.12 M 48.02 Procedure Note: Patient was consented for cervical epidural steroid injection. Risks were discussed including but not limited to: Bleeding, infection, possibility of epidural hematoma and subsequent neurological compromise, dural puncture, headaches, spinal cord and/or nerve damage, side effects of steroid medication, and poor results regarding pain control. Patient understands and wished to proceed. Procedure cervical epidural steroid injection at the C6-7 level, using local anesthetic under sterile prep and drape using C-arm fluoroscopic guidance under local anesthesia medications injected ;120 mg Depo-Medrol +5 mL normal saline and 2 mL contrast; condition at discharge is stable patient tolerated procedure well. and had no complications BRINDA PRIDE MD Dec 30, 2020 13:00
== END ==
LOC: PNCL 08:19
PROVIDERS: ATTEND Anesthesiology
DX: M48.02 Spinal stenosis, cervical region (principal); M54.12 Radiculopathy, cervical region; I10 Essential (primary) hypertension; E11.9 Type 2 diabetes mellitus without complications; K21.9 Gastro-esophageal reflux disease without esophagitis; F41.9 Anxiety disorder, unspecified; Z79.899 Other long term (current) drug therapy; Z98.51 Tubal ligation status; Z98.890 Other specified postprocedural states
CPT/HCPCS: 62321; J1030; J1040; Q9965

== ENCOUNTER → 2021-01-13 | Outpatient (CLI) | payer OTHER ==
--- NOTE | 2021-01-13 09:12 | PDOC4 ---
Procedure Note: ICD 10 Code: ICD 10 Code: M54.12 M 48.02 Procedure Note: Patient was consented for cervical epidural steroid injection with fluoroscopic guidance. Risks were discussed including but not limited to: Bleeding, infection, possibility of epidural hematoma and subsequent neurological compromise, dural puncture, headaches, spinal cord and/or nerve damage, side effects of steroid medication, and poor results regarding pain control. Patient understands and wished to proceed. Procedure cervical epidural steroid injection at the C6-7 level, using local anesthetic under sterile prep and drape using C-arm fluoroscopic guidance under local anesthesia medications injected ;120 mg Depo-Medrol +5 mL normal saline and 2 mL contrast; condition at discharge is stable patient tolerated procedure well. and had no complications BRINDA PRIDE MD Jan 13, 2021 09:12
--- NOTE | 2021-01-13 09:12 | PDOC ---
Progress Note - Pain Clinic Date of Service: DOS: DATE: 01/13/21 TIME: 09:08 Diagnosis: Dx: Cervical radiculopathy with cervical degenerative disc disease and cervical spinal stenosis History or Present Illness: HPI: 40-year-old female returns for follow-up status post cervical epidural steroid injection x1. Patient reports 50% improvement in the neck and right upper extremity pain. Patient reports still having headaches and some pain in the neck itself as well as in the right shoulder but still doing physical therapy wh ich she feels is helping with the muscular pain in the right shoulder as well patient reports her pain is a 3 on a scale of 10 is worse over the past week 3 on average 1 its least is a 3 today patient describes aching and tight in the base the neck and shoulder right upper extremity rating to right hand with some tingling and numbness in the right hand still patient reports no loss of motor function but fatigability with the right hand with repetitive motions and weightbearing. Patient reports she is sleeping better but still wakes her up about every 5 hours from sleep especially she is on her right side. Patient reports no new bowel or bladder incontinence or other deficits. Physical Exam: VS: Blood pressure is 141/96 pulse 80 respirations 16 temperature 98.3 F weight is 185 pounds PE: PHYSICAL EXAMINATION: GENERAL: The patient is awake, alert, oriented, appropriate, very pleasant demeanor HEENT: Shows normocephalic, atraumatic. Extraocular movements are intact and symmetrical. Oral cavity: Mucous membranes moist and pink. Dentition is intact. NECK: Shows anterior throat supple without palpable lymphadenopathy noted. Swallow reflex symmetrical. CHEST: Shows normal on inspection. Breath sounds are clear bilaterally, no rales or rhonchi. HEART: Shows S1, S2 clear. No murmurs auscultated. ABDOMEN: Soft, nontender, nondistended, obese. No palpable organomegaly is noted. BACK: Shows spine grossly in the midline. Normal-appearing cervical lordotic c urvature. Cervical paraspinous muscles show symmetrical inspection, on palpation some moderate tenderness diffusely bilaterally diffusely without significant radiation. Patient is full rotation motion cervical spine both laterally as well as full extension full forward flexion without significant limitation. There is slightly increased thoracic kyphosis, some minor flattening of the lumbar lordotic curvature. Lumbar paraspinous muscles show symmetrical on inspection, on palpation shows some moderate tenderness diffusely throughout the upper, middle and lower distribution of the paraspinous muscles but without specific trigger points, without radiation of pain. The patient has good rotational motion of the lumbar spine, both laterally as well as extension and flexion without significant difficulty. No tenderness over the spinous processes, sacrum or sacroiliac regions. EXTREMITIES: Upper extremities show deep tendon reflexes 2+ in the biceps and triceps tendons. Motor exam is 4 on a scale of 5 with right internet architect, biceps and triceps flexion and 5/5 on the left. Peripheral pulses are 1+ radial. No peripheral edema is noted bilaterally. Upper extremities are warm and dry to touch, equal in color and appearance. SKIN: Shows warm and dry, good turgor. No edema. No sores, rashes or bruising throughout. Procedure: Procedure: Options were discussed with the patient. Patient's old chart was reviewed as her current medication regimen updated current view of systems updated today as well. We will proceed with a cervical epidural steroid injection today with fluoroscopic guidance as a second in the series. Risks were discussed including but not limited to: Bleeding, infection, possibility of epidural hematoma and subsequent neurological compromise, dural puncture, headaches, spinal cord and/or nerve damage, side effects of steroid medication, and poor results regarding pain control. Patient understands and wished to proceed. Patient will return to the clinic in approximately 2 weeks for follow-up, was counseled as to return appointment activity level, and side effects to be aware of. Medication Injected: Med Injected: Procedure cervical epidural steroid injection at the C6-7 level, using local anesthetic under sterile prep and drape using C-arm fluoroscopic guidance under local anesthesia medications injected ;120 mg Depo-Medrol +5 mL normal saline and 2 mL contrast; condition at discharge is stable patient tolerated procedure well. and had no complications Condition at Discharge: Condition at Discharge: Condition at discharge is stable, patient tolerated the procedure well and had no complications. BRINDA PRIDE MD Jan 13, 2021 09:12
== END | disposition home or self-care (01) ==
LOC: PNCL 08:19
PROVIDERS: ATTEND Anesthesiology
DX: M50.10 Cervical disc disorder with radiculopathy, unspecified cervical region (principal); M48.02 Spinal stenosis, cervical region; I10 Essential (primary) hypertension; E11.9 Type 2 diabetes mellitus without complications; E03.9 Hypothyroidism, unspecified; Z87.440 Personal history of urinary (tract) infections; Z98.51 Tubal ligation status; Z98.890 Other specified postprocedural states; Z79.84 Long term (current) use of oral hypoglycemic drugs; Z79.899 Other long term (current) drug therapy; Z72.89 Other problems related to lifestyle
CPT/HCPCS: 62321; J1030; J1040; Q9965

== ENCOUNTER → 2021-01-29 | Outpatient (CLI) | payer OTHER ==
[~2021-01-29] MED LIST changes: -IOHEXOL 180 MG/ML 10 ML VIAL. ONE; -methylPREDNISolone ACETATE 40 MG/ML VIAL. ONE; -methylPREDNISolone ACETATE 80 MG/ML VIAL. ONE
--- NOTE | 2021-01-29 08:50 | PDOC ---
Progress Note - Pain Clinic Date of Service: DOS: DATE: 01/29/21 TIME: 08:45 Diagnosis: Dx: Cervical radiculopathy with cervical degenerative disc disease and cervical spinal stenosis Myofascial pain History or Present Illness: HPI: 40-year-old female returns for follow-up status post cervical epidural steroid injections x2. Patient reports about 80% improvement in the base the neck and shoulder pain patient reports her right upper extremity is doing much better without significant radiation to both the upper extremity at this time. Patient reports her pain is a 2 on scale 10 is worse with past week 2 on average 0 its least is a 2 today patient was aching and tingling base the neck and shoulder mainly on the right side but much better than it was patient reports increased activity with distance walking doing household activities work activities traction travel with greater ease and comfort sleeping better at night does not awaken her from sleep generally patient is very pleased with her progress thus far reports that she still has some significant tenderness in the base of the skull on the right side in the neck and the medial to lower cervical dist ribution more on the right side than the left that is new in it is more spastic and tight than it was previously. Patient was no radiation to the right upper extremity and is much improved. Physical Exam: VS: Blood pressure is 151/101 pulse 84 respirations 18 temperature 98.7 F height is 4 feet 11 inches weight is 189 pounds PE: PHYSICAL EXAMINATION: GENERAL: The patient is awake, alert, oriented, appropriate, very pleasant in demeanor HEENT: Shows normocephalic, atraumatic. Extraocular movements are intact and symmetrical. Oral cavity: Mucous membranes moist and pink. Dentition is intact. NECK: Shows anterior throat supple without palpable lymphadenopathy noted. Swallow reflex symmetrical. CHEST: Shows normal on inspection. Breath sounds are clear bilaterally, distant but no rales or rhonchi. HEART: Shows S1, S2 clear. No murmurs auscultated. ABDOMEN: Soft, nontender, nondistended, obese. No palpable organomegaly is noted. BACK: Shows spine grossly in the midline. Normal-appearing cervical lordotic curvature. Cervical paraspinous muscles show symmetrical inspection on palpation some significant tenderness in the right side the superior aspect of the cervical paraspinous muscular as well as the middle and lower distribution with very firm ropelike muscular consistent with trigger point areas on the right side only left side is supple without significant tenderness. Patient shows full rotation motion cervical spine with lateral as well as full extension full forward flexion without significant difficulty. There is slightly increased thoracic kyphosis, some minor flattening of the lumbar lordotic curvature. EXTREMITIES: Upper extremities melani no w deep tendon reflexes 2+ in the biceps and triceps tendons. Motor exam is 4 on a scale of 5 with right home office claim specialist, biceps and triceps flexion and 5/5 on the left. Peripheral pulses are 2+ radial. No peripheral edema is noted bilaterally. Upper extremities are warm and dry to touch, equal in color and appearance. SKIN: Shows warm and dry, good turgor. No edema. No sores, rashes or bruising throughout. Procedure: Procedure: Options were discussed with patient. Patient chart was reviewed as her current medication regimen updated current review of systems updated today as well. We will hold any further injections at this time as patient is doing quite a bit better, patient does have some significant myofascial findings which are new but would like to try some strengthening stretching exercises as well as heat massage therapies first if not significantly improved we did discuss potential trigger point injections in these regions as well. Patient will follow up at this time as needed basis. Medication Injected: Med Injected: None Condition at Discharge: Condition at Discharge: Condition at discharge is stable. BRINDA PRIDE MD Jan 29, 2021 08:50
== END | disposition home or self-care (01) ==
LOC: PNCL 08:28
PROVIDERS: ATTEND Anesthesiology
DX: M50.10 Cervical disc disorder with radiculopathy, unspecified cervical region (principal); M48.02 Spinal stenosis, cervical region; M79.18 Myalgia, other site; I10 Essential (primary) hypertension; E03.9 Hypothyroidism, unspecified; E11.9 Type 2 diabetes mellitus without complications; Z87.440 Personal history of urinary (tract) infections; Z98.51 Tubal ligation status; Z98.890 Other specified postprocedural states; Z79.899 Other long term (current) drug therapy; Z79.84 Long term (current) use of oral hypoglycemic drugs; Z72.89 Other problems related to lifestyle
CPT/HCPCS: 99212; G0463

== ENCOUNTER → 2021-02-13 | Outpatient (CLI) | payer OTHER ==
[~2021-02-13] MED LIST changes: +OMEP20CA16 PO
[2021-02-13 16:51] LABS: THYROID STIM HORMONE (TSH) 3.056 uIU/mL (0.358-3.74)
== END ==
LOC: LAB 15:47
PROVIDERS: ATTEND Family Medicine
DX: E06.9 Thyroiditis, unspecified (principal)
CPT/HCPCS: 36415; 84436; 84443; 84480; 84481; 86376

== ENCOUNTER → 2021-02-21 | Outpatient (CLI) | payer OTHER ==
[~2021-02-21] MED LIST changes: +BUPIVACAINE MPF 0.25% 10 ML VIAL. ONE; +methylPREDNISolone ACETATE 80 MG/ML VIAL. ONE
--- NOTE | 2021-02-21 09:00 | PDOC ---
Progress Note - Pain Clinic Date of Service: DOS: DATE: 02/21/21 TIME: 08:55 Diagnosis: Dx: Cervical radiculopathy with cervical degenerative disc disease and cervical spinal stenosis Myofascial pain History or Present Illness: HPI: 40-year-old female returns for follow-up status post cervical epidural 2 injections x 2. Patient reports about 90+ percent improvement with the radicular pain however has new pain in the base of the neck base of the skull and both sides of the neck left slightly worse on the right causing some significant headaches on the back of the head. Patient reports it radiates into the upper back as well which is a new pain for her no longer radiating as much into the shoulders or upper extremities but now into the upper mid back as well as into the neck and with radiating pain to the head causing significant headaches patient rates the pain is a 3 on scale 10 on average 0 its least 3 at its worst and is a 3 today. Patient reports it causes significant headaches worse with more activity and this time goes by during the day when she is working out causing pain in the back of the head radiating to the top of the head as well as sometimes to the frontal region when the headache gets just as significant. Patient reports she just tarted taking omeprazole which has been helpful for her reflux as well. Patient reports no motor deficits no incontinence. Physical Exam: VS: Blood pressure is 143/87 pulse 91 respiration 16 temperature 90.4 F height is 4 foot 11 inches weight is 189 pounds. PE: PHYSICAL EXAMINATION: GENERAL: The patient is awake, alert, oriented, appropriate, very pleasant in demeanor HEENT: Shows normocephalic, atraumatic. Extraocular movements are intact and symmetrical. Oral cavity: Mucous membranes moist and pink. Dentition is intact. NECK: Shows anterior throat supple without palpable lymphadenopathy noted. S wallow reflex symmetrical. CHEST: Shows normal on inspection. Breath sounds are clear bilaterally, distant but no rales or. HEART: Shows S1, S2 clear. No murmurs auscultated. ABDOMEN: Soft, nontender, nondistended, obese. No palpable organomegaly is not ed. BACK: Shows spine grossly in the midline. Normal-appearing cervical lordotic curvature. Cervical paraspinous muscles show symmetrical inspection on palpation some significant firm tender areas in the superior and middle and inferior aspect of the cervical paraspinous musculature bilaterally with very firm ropelike musculature very tender with palpation without specific radiation but some pain in the back of the skull on palpation of the upper distribution of the cervical paraspinous musculature bilaterally with strain to the superior medial trapezius more on the left than the right but present bilaterally very firm ropelike musculature consistent with trigger point areas of muscular also into the superior thoracic paraspinous musculature more on the right than the left very firm ropelike musculature very tender to palpation but without radiation. EXTREMITIES: Upper extremities show deep tendon reflexes 2+ in the biceps and tricep tendons. Motor exam is 4 on a scale of 5 with right production control scheduler, biceps and tri ceps flexion and 5/5 on the left. Peripheral pulses are 2+ radial. No peripheral edema is noted bilaterally. Upper extremities are warm and dry to touch, equal in color and appearance. SKIN: Shows warm and dry, good turgor. No edema. No sores, rashes or bruising throughout. Procedure: Procedure: Options discussed with patient. Patient chart was reviewed as her current medication regimen updated current view of systems updated today as well. We'll proceed with trigger point injections of the bilateral cervical paraspinous posture bilateral trapezius muscles or bilateral thoracic paraspinous mu sculature. Risk were discussed including but not limited to bleeding infection possibility of intravascular injection sequelae spread local anesthetic numbness pneumothorax side effects of steroid medication portals regarding pain control. Patient understands wished to proceed. Patient return to the clinic in approximately 2 weeks or as necessary. Patient was encouraged to maintain stretching strength exercises also we discussed heat and cold application with the cervical and thoracic distribution of the musculature as well. Medication Injected: Med Injected: Patient sitting position under sterile prep and drape patient's cervical paraspinous muscular trapezius musculature and thoracic paraspinous posture was then applied and trigger points identified within the musculature with palpation. Using a 25-gauge needle after negative aspiration each injection site total of 7 cc 0.25% bupivacaine and total of 40 mg Depo-Medrol was administered. Patient tolerated the procedure well and had no complications. Condition at Discharge: Condition at Discharge: Condition at discharge is stable, patient tolerated the procedure well and had no complications. BRINDA PRIDE MD Feb 21, 2021 09:00
--- NOTE | 2021-02-21 09:02 | PDOC4 ---
Procedure Note: ICD 10 Code: ICD 10 Code: M60.89 M 48.02 M54.12 Procedure Note: Patient was consented for trigger point injections bilateral cervical paraspinous posture, bilateral thoracic paraspinous musculature, bilateral trapezius musculature. Risk were discussed including not limited to bleeding infection, spread local anesthetic and numbness, side effects of steroid medication, pneumothorax, poor results with pain control. Patient understands and wishes to proceed. Patient sitting position under sterile prep and drape patient's cervical paraspinous muscular trapezius musculature and thoracic paraspinous posture was then applied and trigger points identified within the musculature with palpation. Using a 25-gauge needle after negative aspiration each injection site total of 7 cc 0.25% bupivacaine and total of 40 mg Depo-Medrol was administered. Patient tolerated the procedure well and had no complications. BRINDA PRIDE MD Feb 21, 2021 09:02
== END | disposition home or self-care (01) ==
LOC: PNCL 08:35
PROVIDERS: ATTEND Anesthesiology
DX: M50.10 Cervical disc disorder with radiculopathy, unspecified cervical region (principal); M48.02 Spinal stenosis, cervical region; M79.18 Myalgia, other site; E11.9 Type 2 diabetes mellitus without complications; E03.9 Hypothyroidism, unspecified; Z87.440 Personal history of urinary (tract) infections; Z90.710 Acquired absence of both cervix and uterus; Z98.51 Tubal ligation status; Z98.890 Other specified postprocedural states; Z79.84 Long term (current) use of oral hypoglycemic drugs; Z79.899 Other long term (current) drug therapy; Z72.89 Other problems related to lifestyle
CPT/HCPCS: 20553; J1040; J3490